=== PATIENT | male | born 1940 | race Caucasian/White ===

== ENCOUNTER 2018-08-15 08:16 | Outpatient (CLI) | payer MEDICARE ==
--- NOTE | 2018-08-16 11:16 | Ultrasound Report ---
Reason: EDEMA, R/O ABSCESS Procedure Date: 08/15/2018 Accession Number: [id number] / [id number] Procedure: US - Ext Limited Non Vascular CPT Code: FULL RESULT: EXAM: RIGHT/LEFT UPPER EXTREMITY ULTRASOUND - LIMITED EXAM DATE: 08/15/2018 09:05 AM. CLINICAL HISTORY: Edema, rule out abscess. Injury to anterior stallworth 3 weeks ago with worsening anterior stallworth swelling and redness. COMPARISON: None. TECHNIQUE: Real-time scanning was performed with static images obtained. FINDINGS: There is a complex fluid collection of the anterior subcutaneous soft tissues with low level internal echoes measuring 5 x 1.3 x 3 cm in dimension corresponding to area of clinical symptoms. There is edema in the surrounding subcutaneous fat. IMPRESSION: 5 cm anterior complex fluid collection indeterminate between evolving hematoma or abscess. Clinical correlation is suggested; consider percutaneous drainage or aspirate. RADIA The above findings were discussed with Rosa Moore by Dr. Melvin Mcleod at 11:07 AM hrs on 08/16/2018.
== END 2018-08-15 08:17 | disposition home or self-care (01) ==
LOC: DI 08:16
PROVIDERS: ATTEND Internal Medicine
DX: R60.9 Edema, unspecified (principal)
CPT/HCPCS: 76882

== ENCOUNTER 2022-09-13 10:26 | Emergency (ER) | payer MEDICARE ==
[2022-09-13 11:20] LABS: BASOPHILS % (AUTO) 0.3 %; EOSINOPHILS # (AUTO) 0.1 10^3/uL (0.0-0.7); EOSINOPHILS % (AUTO) 0.9 %; HCT - HEMATOCRIT 40.1 % (42.0-52.0); HGB - HEMOGLOBIN 13.5 g/dL (14.0-18.0); LYMPHOCYTES # (AUTO) 1.3 10^3/uL (1.5-3.5); LYMPHOCYTES % (AUTO) 19.6 %; MEAN CORPUSCULAR HEMOGLOBIN 31.8 pg (27.0-31.0); MEAN CORPUSCULAR HGB CONC 33.7 g/dL (32.0-36.0); MEAN CORPUSCULAR VOLUME 94.6 fL (80.0-94.0); MEAN PLATELET VOLUME 10.7 fL (7.4-11.4); MONOCYTES # (AUTO) 0.6 10^3/uL (0.0-1.0); MONOCYTES % (AUTO) 9.5 %; NEUTROPHILS # (AUTO) 4.5 10^3/uL (1.5-6.6); NEUTROPHILS % (AUTO) 69.7 %; PLT - PLATELET COUNT 245 10^3/uL (130-450); RED BLOOD COUNT 4.24 10^6/uL (4.70-6.10); RED CELL DISTRIBUTION WIDTH 12.9 % (12.0-15.0); WHITE BLOOD COUNT 6.4 x10^3/uL (4.8-10.8)
[2022-09-13 11:32] LABS: ALBUMIN 4.2 g/dL (3.2-5.5); ALBUMIN/GLOBULIN RATIO 1.4 (1.0-2.2); BILIRUBIN,TOTAL 0.9 mg/dL (0.2-1.0); CALCIUM 9.1 mg/dL (8.5-10.3); CREATININE 1.2 mg/dL (0.6-1.2); POTASSIUM 3.8 mmol/L (3.5-5.0); TOTAL PROTEIN 7.3 g/dL (6.7-8.2)
--- NOTE | 2022-09-13 12:41 | ED Physician Documentation ---
History of Present Illness - Stated complaint Stated Complaint: BLOOD IN STOOL - Chief complaint Chief Complaint: Abd Pain - Additonal information Additional information: 82-year-old male presents to the emergency department for evaluation of painless rectal bleeding and dark stools. Symptoms began yesterday. He denies any constipation. Does not take blood thinners. Patient states that he was initially passing Small amount of bright red clots but this morning with defecation he noted what he thought to be black stool. Does not take iron or Pepto-Bismol. States that his father was diagnosed with colon cancer at 84. His last colonoscopy was in 2017. Denies any history of concerns on colonoscopies. He denies feeling faint, fevers having any abdominal pain nausea or vomiting. Meds include a statin and amlodipine only. Review of Systems Constitutional: denies: Fever, Chills Cardiac: reports: Reviewed and negative Respiratory: reports: Reviewed and negative GI: reports: Bloody / black stool : reports: Reviewed and negative Skin: reports: Reviewed and negative PD PAST MEDICAL HISTORY - Past Medical History Cardiovascular: Hypertension, Murmur Respiratory: None Endocrine/Autoimmune: None GI: Colon polyps : None HEENT: None Psych: None Musculoskeletal: None Derm: None - Allergies Allergies/Adverse Reactions: Allergies Allergy/AdvReac Type Severity Reaction Status Date / Time scallops Allergy Hives Verified 09/13/22 10:53 PD ED PE NORMAL - General General: Alert and oriented X 3, No acute distress - HEENT HEENT: PERRL - Cardiac Cardiac: RRR, No murmur - Respiratory Respiratory: No respiratory distress, Clear bilaterally - Abdomen Abdomen: Normal bowel sounds, Soft, Non tender - Rectal Rectal: Other - Back Back: No CVA TTP - Derm Derm: Normal color, Warm and dry, No rash - Extremities Extremities: No deformity - Neuro Neuro: Alert and oriented X 3, 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 Deferred guaiac as it would result positive) GCS Score: 15 Results - Vitals Vitals: Vital Signs - 24 hr 09/13/22 09/13/22 10:49 12:42 Temperature 36.5 C 36.6 C Heart Rate 60 55 L Respiratory 16 14 Rate Blood Pressure 147/67 H 143/70 H O2 Saturation 97 98 Oxygen O2 Source Room air - Labs Labs: Laboratory Tests 09/13/22 09/13/22 09/13/22 11:12 11:12 11:12 WBC 6.4 RBC 4.24 L Hgb 13.5 L Hct 40.1 L MCV 94.6 H MCH 31.8 H MCHC 33.7 RDW 12.9 Plt Count 245 MPV 10.7 Neut # (Auto) 4.5 Lymph # (Auto) 1.3 L Ector # (Auto) 0.6 Eos # (Auto) 0.1 Baso # (Auto) 0.0 Absolute Nucleated RBC 0.00 Nucleated RBC % 0.0 PT 11.0 INR 1.0 Sodium Potassium Chloride Carbon Dioxide Anion Gap BUN Creatinine Estimated GFR (MDRD) Glucose Calcium Total Bilirubin AST ALT Alkaline Phosphatase Total Protein Albumin Globulin Albumin/Globulin Ratio Lipase Blood Type O NEGATIVE Antibody Screen NEGATIVE 09/13/22 11:12 WBC RBC Hgb Hct MCV MCH MCHC RDW Plt Count MPV Neut # (Auto) Lymph # (Auto) Ector # (Auto) Eos # (Auto) Baso # (Auto) Absolute Nucleated RBC Nucleated RBC % PT INR Sodium 137 Potassium 3.8 Chloride 103 Carbon Dioxide 28 Anion Gap 6.0 BUN 17 Creatinine 1.2 Estimated GFR (MDRD) 58 L Glucose 108 H Calcium 9.1 Total Bilirubin 0.9 AST 24 ALT 22 Alkaline Phosphatase 68 Total Protein 7.3 Albumin 4.2 Globulin 3.1 Albumin/Globulin Ratio 1.4 Lipase 28 Blood Type Antibody Screen - Rads (name of study) CT abd w Radiology: Final report received (No acute abdominal or pelvic abnormality. Diverticulosis without evidence of diverticulitis.) Departure - Departure Disposition: 01 Home, Self Care Clinical Impression: Rectal bleeding Condition: Stable Record reviewed to determine appropriate education?: Yes Instructions: ED Hematochezia Stable Comments: Nathaniel you came to the emergency department because yesterday began having some blood in your stools and passed very dark stool this morning. Here in the emergency department his CBC and electrolytes were essentially normal. We did do a CT scan of your abdomen with contrast and found no acute worrisome findings. You do have diverticulosis but no findings to suggest inflammation. However with your age it is critical that you have a colonoscopy to further identify the source of this bleeding. Please discuss this with your primary care doctor. Ideally you would have a colonoscopy completed within the next 1 to 2 weeks. If you find that you are having worsening symptoms, feel faint, lightheaded or have severe bleeding you do need to return immediately to the ER for repeat evaluation.
[2022-09-13 12:42] VITALS: BP 143/70
[2022-09-13] MEDS ORDERED: iohexoL-300 100 ML VIAL ONE (13:20)
--- NOTE | 2022-09-13 14:40 | CT Report ---
PROCEDURE: ABDOMEN/PELVIS W INDICATIONS: rectal bleeding CONTRAST: 100ml omni 300 TECHNIQUE: After the administration of contrast, 5 mm thick sections acquired from the diaphragms to the symphys is. 5 mm thick coronal and sagittal reformats were acquired. For radiation dose reduction, the foll owing was used: automated exposure control, adjustment of mA and/or kV according to patient size. COMPARISON: None. FINDINGS: Image quality: Excellent. ABDOMEN: Lung bases: Lung bases are clear. Heart size is normal. Solid organs: Liver and spleen are normal in size and enhancement. Gallbladder is normal with no ca lculus or hydronephrosis. Biliary system is non dilated. Pancreas enhances normally. No adrenal no dules. Kidneys demonstrate multiple simple cysts bilaterally. No solid masses. No hydronephrosis or c alculi. The coronary arteries have atherosclerotic calcifications. Peritoneum and bowel: Bowel loops demonstrate normal wall thickness and caliber. Diverticulosis wit hout evidence of diverticulitis. No free fluid or air. Nodes and vessels: No retroperitoneal or mesenteric adenopathy by size criteria. Aorta and inferior vena cava are normal in size. Miscellaneous: No ventral hernias. PELVIS: Genitourinary: Bladder wall thickness is normal. Miscellaneous: No inguinal hernias or adenopathy. Fat-containing inguinal hernias bilaterally. Bones: No suspicious bony lesions. No vertebral body compression fractures. IMPRESSION: 1. No acute abdominal or pelvic abnormality. 2. Diverticulosis without evidence of diverticulitis. Reviewed by: Michael Brownlee on 09/13/2022 1:39 PM [facility] Approved by: Michael Brownlee on 09/13/2022 1:39 PM [facility] Station ID: [id number]
[2022-09-13] MEDS ORDERED: iohexoL-300 100 ML VIAL IVP ONE (15:48)
== END 2022-09-13 15:11 | disposition home or self-care (01) ==
LOC: ED 10:26
DX: K57.90 Diverticulosis of intestine, part unspecified, without perforation or abscess without bleeding (principal); K62.5 Hemorrhage of anus and rectum
CPT/HCPCS: 36415; 74177; 80053; 83690; 85025; 85610; 86850; 86900; 86901; 99284; Q9967

== ENCOUNTER → 2023-07-04 | Outpatient (CLI) | payer MEDICARE | LOC: LAB.N 08:00 | PROVIDERS: ATTEND Physician Assistant Medical | DX: B34.9 Viral infection, unspecified (principal) ==